=== PATIENT | female | born 2000 | race Caucasian/White ===

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

== ENCOUNTER → 2019-10-13 14:11 | Outpatient (CLI) | payer BC, SELFPAY ==
--- NOTE | 2019-10-16 13:58 | PC.NURSE ---
PT CALLED WITH NEGATIVE COVID-19 RESULTS.
[2019-10-16 17:33] LABS: Covid-19 Nasal PCR Sendout Lex NOT DETECTED
--- NOTE | 2019-10-16 18:57 | PC.NURSE ---
Dr. Hernández notified of negative COVID-19 result at 1855 on 10/16/19.
== END ==
PROVIDERS: Visit Provider Nurse Practitioner
DX: R05 Cough (principal); R06.02 Shortness of breath; Z20.828 Contact with and (suspected) exposure to other viral communicable diseases

== ENCOUNTER → 2020-01-26 10:17 | Outpatient (CLI) | payer BC, SELFPAY ==
[2020-01-26 12:45] LABS: Coronavirus 19 IgG Antibody Negative (Negative); Coronavirus 19 IgM Antibody Negative (Negative)
== END ==
PROVIDERS: PCP Family Medicine; Visit Provider Nurse Practitioner
DX: Z03.818 Encounter for observation for suspected exposure to other biological agents ruled out (principal)
CPT/HCPCS: 36415; 86328

== ENCOUNTER → 2020-04-06 13:25 | Outpatient (CLI) | payer BC, SELFPAY ==
--- NOTE | 2020-04-06 | XR_ITS ---
PROCEDURE: XR WRIST LT MIN 3V CLINICAL INDICATION: INJURY TO L WRIST COMPARISON: No exams were available for comparison FINDINGS: Carpal bones appear intact. The distal radius and ulna appear normal. The soft tissues are normal. IMPRESSION: No acute findings. Dictated by: Dr. Lizandro Natarajan MD 04/06/2020 14:14 Dr. Lizandro Natarajan MD in [place] 04/06/2020 14:14
--- NOTE | 2020-04-06 | XR_ITS ---
PROCEDURE: XR HAND LT MIN 3V CLINICAL INDICATION: INJURY TO L HAND COMPARISON: No exams were available for comparison FINDINGS: No fracture or dislocation. No lytic or blastic change. There is normal mineralization. The joint spaces are well-preserved. No significant degenerative/arthritic changes. No erosive changes evident. Other findings:None. IMPRESSION: No acute findings. Dictated by: Dr. Lizandro Natarajan MD 04/06/2020 14:14 Dr. Lizandro Natarajan MD in [place] 04/06/2020 14:14
== END ==
PROVIDERS: PCP Nurse Practitioner; Visit Provider Nurse Practitioner
DX: S69.92XA Unspecified injury of left wrist, hand and finger(s), initial encounter (principal)
CPT/HCPCS: 73110; 73130

== ENCOUNTER → 2021-05-24 16:49 | Outpatient (CLI) | payer BC, SELFPAY ==
[2021-05-26 12:08] LABS: Hepatitis B Surf Ab Quant 9.7 mIU/mL (Immunity>9.9)
[2021-05-27 08:23] LABS: Rubella Antibodies, IgG 2.32 index (Immune >0.99)
[2021-05-27 13:09] LABS: Measles Antibodies, IgG 77.9 AU/mL (Immune >16.4); Mumps Abs, IgG 93.8 AU/mL (Immune >10.9); Varicella Zoster IgG 424 index (Immune >165)
== END ==
PROVIDERS: Visit Provider Family Medicine
DX: Z00.00 Encounter for general adult medical examination without abnormal findings (principal)
CPT/HCPCS: 36415; 86706; 86735; 86762; 86765; 86787